=== PATIENT | male | born 2000 | race Two or more races ===

== ENCOUNTER → 2023-09-29 | Emergency (ER) | payer OTHER ==
[~2023-09-29] VITALS: Ht 185.4 cm; Wt 84.4 kg
[2023-09-29 18:16] LABS: HEMATOCRIT 43.4 % (39.0-48.0); HEMOGLOBIN 14.5 g/dL (13-16.00); MEAN CELL VOLUME 88.7 fL (80.0-100.00); MEAN CORPUSCULAR HEMOGLOBIN 29.7 pg (27.00-32.0); MEAN CORPUSCULAR HGB CONC 33.5 g/dl (32.0-36.0); PLATELET COUNT 252 K/uL (150-450); RED BLOOD COUNT 4.89 M/uL (4.00-6.00)
[2023-09-29 18:33] LABS: INR 1.05
== END | disposition home or self-care (01) ==
LOC: ER 16:24
PROVIDERS: General Practice
DX: L03.90 Cellulitis, unspecified (principal)
CPT/HCPCS: 36415; 96365; 99282; J0696; J1885